=== PATIENT | female | born 1985 | race Caucasian/White ===

== ENCOUNTER 2023-01-06 08:21 | Emergency (ER) | payer BC ==
--- NOTE | 2023-01-06 08:26 | ED ---
General Adult HPI - General Stated complaint: Stroke Time Seen by Provider: 01/06/23 08:22 - History of Present Illness Initial comments: Dictation was produced using [employer] dictation software. please excuse any grammatical, word or spelling errors. Chief Complaint: 37-year-old female with unknown past medical history presents to the ER for strokelike symptoms History of Present Illness: To 37-year-old female she is a poor historian. History of present illness obtained mostly from EMS. EMS states that patient allegedly went to bed last night in her normal state of health. Allegedly she went to bed at 12 AM as night. This morning she woke to the bathroom and stumbled and fell. According to EMS patient has no history except for in vitro fertilization. She does not have any medical history otherwise. EMS reports the patient has right-sided deficits, neglect and facial droop. Unable to obtain ROS secondary to patient's mental status - Related Data Allergies Allergy/AdvReac Type Severity Reaction Status Date / Time Penicillins AdvReac Unknown Verified 01/06/23 08:41 Review of Systems ROS Statement: Those systems with pertinent positive or pertinent negative responses have been documented in the HPI. ROS Other: All systems not noted in ROS Statement are negative. General Exam - General Exam Comments Initial Comments: PHYSICAL EXAM: General Impression: Alert and oriented x2/4, not in acute distress HEENT: Normocephalic atraumatic, extra-ocular movements intact, pupils equal and reactive to light bilaterally, mucous membranes moist. Cardiovascular: Heart regular rate and rhythm Chest: Able to complete full sentences, no retractions, no tachypnea Abdomen: abdomen soft, non-tender, non-distended, no organomegaly Musculoskeletal: Pulses present and equal in all extremities, no peripheral edema Motor: no focal deficits noted Neurological: Right-sided facial droop, paralysis of the right upper extremity, sensory light touch patient reports is normal. She does have right-sided neglect, nondistended, positive aphasia, NIH score of 8 Skin: Intact with no visualized rashes Psych: Normal affect and mood Course Vital Signs 01/06/23 01/06/23 01/06/23 08:23 08:35 08:38 Temperature 97.8 F 97.6 F 97.6 F Pulse Rate 55 L 55 L 55 L Respiratory 16 16 16 Rate Blood Pressure 133/82 133/82 133/82 O2 Sat by Pulse 97 97 97 Oximetry 01/06/23 01/06/23 08:50 09:48 Temperature 97.6 F 97.8 F Pulse Rate 82 64 Respiratory 18 18 Rate Blood Pressure 131/71 141/86 O2 Sat by Pulse 97 97 Oximetry Medical Decision Making - Medical Decision Making 37-year-old female presents emergency department for strokelike symptoms. Last normal was at minimum 12 AM this morning when she went to bed. Patient will symptoms. Patient had a candidate for alteplase. Recently the benefits. Code stroke paged prior to patient's arrival. She was given an NIH score of 8 initially upon arrival. Was pt. sent in by a medical professional or institution (, PA, [employer]EN[employer]EEPER [employer]ORER, urgent care, hospital, or residential...) When possible be specific @ -No Did you speak to anyone other than the patient for history (EMS, parent, family, police, friend...)? What history was obtained from this source @ -More history was obtained from who is now at the bedside. States that over the last 2-3 days she's been complaining of a migraine headache. She was asked by if she went to go to the emergency department patient refused. she woke up and stumbled out of bed which was when EMS was called. Did you review nursing and triage notes (agree or disagree)? Why? @ -I reviewed and agree with nursing and triage notes Were old charts reviewed (outside hosp., previous admission, EMS record, old EKG, old radiological studies, urgent care reports/EKG's, residential records)? Report findings @ -No old charts were reviewed Differential Diagnosis (chest pain, altered mental status, abdominal pain women, abdominal pain men, vaginal bleeding, musculoskeletal, weakness, fever, dyspnea, syncope, headache, dizziness, GI bleed, back pain, seizure, CVA, palpatations, mental health)? @ - Differential CVA: Ischemic stroke, hemorrhagic stroke, brain tumor, atypical migraine, Wernicke's encephalopathy, seizure, multiple sclerosis, meningitis, encephalitis, hypoglycemia, Guillain-Johnson, electrolytes disturbance, myasthenia gravis.... This is not meant to be an all-inclusive list EKG interpreted by me (3pts min.). @ -My EKG interpretation: Ventricular rate 60, sinus rhythm,. 129, QRS 95, QTc 444. No [place] prolongation, no QTC prolongation, no ST or T-wave changes noted. EKG compared to default value showing no changes. Overall, this EKG is unremarkable X-rays interpreted by me (1pt min.). @ -None done CT interpreted by me (1pt min.). @ -Computed tomography scan of brain shows hyperdensity in the dural venous sinus system. He does appear to be hyperdensity in the upper right frontal region concerning for hemorrhage. CT angiography shows no large vessel occlusion U/S interpreted by me (1pt. min.). @ -None done What testing was considered but not performed or refused? (CT, X-rays, U/S, lab s)? Why? @ -MRI was considered however we do not have MRI available at our facility today What meds were considered but not given or refused? Why? @ -This was considered however patient not a candidate due to risk of doing the benefits. Heparin was also considered however there is suspicion of acute hemorrhage on CT brain Did you discuss the management of the patient with other professionals (professionals i.e. , PA, GREENSKEEPER LABORER, lab, RT, psych nurse, geriatric social work professor, manager shell, teacher, police officer crime prevention, case aide)? Give summary @ -Discussed with stroke neurologist, Dr. Waggoner who reviewed CT angiograp hy. It was relayed to him that computed tomography scan of the brain was concerning for cavernous sinus thrombosis. He requested the patient get stat MRI and that heparin be held until MRI results can define if there is a hemorrhage or not. Case discussed with discussed with Dr. Silva who also re viewed CT films. He agrees with stroke neurologist plan for transfer and no heparin until MRI. Was smoking cessation discussed for >3mins.? @ -No Was critical care preformed (if so, how long)? @ -33 minutes Were there social determinants of health that impacted care today? How? (Homelessness, low income, unemployed, alcoholism, drug addiction, transportation, low edu. Level, literacy, decrease access to med. care, detention, rehab)? @ -No Was there de-escalation of care discussed even if they declined (Discuss DNR or withdrawal of care, Hospice)? DNR status @ -No What co-morbidities impacted this encounter? (DM, HTN, Smoking, COPD, CAD, Cancer, CVA, ARF, Chemo, Hep., AIDS, mental health diagnosis, sleep apnea, morbid obesity)? @ -None Was patient admitted / discharged? Hospital course, mention meds given and route, prescriptions, significant lab abnormalities, going to OR and other p ertinent info. @ -37 y Old female presents to emergency department with strokelike symptoms. Patient outside the window for alteplase administration. Imaging suspicious for intracranial hemorrhage and venous sinus thrombosis. Initially was agreed that patient not a candidate for heparin however Dr. Silva spoke with Dr. Waggoner and they decided that patient should be started on heparin without bolus. Stroke specialist request stat MRI. We do not have MRI at her facility today. Initial plans were to transfer patient to [place] [facility]. However there was significant delay. We did get in contact with [facility] who did accept the patient for ER to ER transfer. Case was discussed with Dr. Rivera was accepting physician Undiagnosed new problem with uncertain prognosis? @ -No Drug Therapy requiring intensive monitoring for toxicity (Heparin, Nitro, Insulin, Cardizem)? @ -yes Were any procedures done? @ -No Diagnosis/symptom? Acute, or Chronic, or Acute on Chronic? Uncomplicated (without systemic symptoms) or Complicated (systemic symptoms)? @ -1. Acute strokelike symptoms Side effects of treatment? @ -No Exacerbation, Progression, or Severe Exacerbation? @ -No Poses a threat to life or bodily function? How? (Chest pain, [place], HI, pneumonia, PE, COPD, DKA, ARF, appy, cholecystitis, CVA, Diverticulitis, Homicidal, Suicidal, threat to staff... and all critical care pts) @ -yes - Lab Data Result diagrams: 01/06/23 08:45 01/06/23 08:45 Lab Results 01/06/23 01/06/23 01/06/23 Range/Units 08:45 08:45 08:45 WBC 13.1 H (3.8-10.6) k/uL RBC 4.54 (3.80-5.40) m/uL Hgb 10.9 L (11.4-16.0) gm/dL Hct 34.4 (34.0-46.0) % MCV 75.7 L (80.0-100.0) fL MCH 24.0 L (25.0-35.0) pg MCHC 31.7 (31.0-37.0) g/dL RDW 14.7 (11.5-15.5) % Plt Count 319 (150-450) k/uL MPV 7.6 Neutrophils % 88 % Lymphocytes % 7 % Monocytes % 3 % Eosinophils % 1 % Basophils % 0 % Neutrophils # 11.5 H (1.3-7.7) k/uL Lymphocytes # 1.0 (1.0-4.8) k/uL Monocytes # 0.3 (0-1.0) k/uL Eosinophils # 0.1 (0-0.7) k/uL Basophils # 0.0 (0-0.2) k/uL Microcytosis Slight Sodium 133 L (137-145) mmol/L Potassium 3.9 (3.5-5.1) mmol/L Chloride 104 (98-107) mmol/L Carbon Dioxide 23 (22-30) mmol/L Anion Gap 6 mmol/L BUN 10 (7-17) mg/dL Creatinine 0.59 (0.52-1.04) mg/dL Est GFR (CKD-EPI)AfAm >90 (>60 ml/min/1.73 sqM) Est GFR (CKD-EPI)NonAf >90 (>60 ml/min/1.73 sqM) Glucose 121 H (74-99) mg/dL Calcium 8.3 L (8.4-10.2) mg/dL Total Bilirubin 0.4 (0.2-1.3) mg/dL AST 13 L (14-36) U/L ALT 13 (4-34) U/L Alkaline Phosphatase 77 (38-126) U/L Troponin I <0.012 (0.000-0.034) ng/mL Total Protein 6.3 (6.3-8.2) g/dL Albumin 3.1 L (3.5-5.0) g/dL HCG, Quant <2.4 mIU/mL Urine Color Urine Appearance (Clear) Urine pH (5.0-8.0) Ur Specific [place] (1.001-1.035) Urine Protein (Negative) Urine Glucose (UA) (Negative) Urine Ketones (Negative) Urine Blood (Negative) Urine Nitrite (Negative) Urine Bilirubin (Negative) Urine Urobilinogen (<2.0) mg/dL Ur Leukocyte Esterase (Negative) Urine Opiates Screen (NotDetected) Ur Oxycodone Screen (NotDetected) Urine Methadone Screen (NotDetected) Ur Propoxyphene Screen (NotDetected) Ur Barbiturates Screen (NotDetected) U Tricyclic Antidepress (NotDetected) Ur Phencyclidine Scrn (NotDetected) Ur Amphetamines Screen (NotDetected) U Methamphetamines Scrn (NotDetected) U Benzodiazepines Scrn (NotDetected) Urine Cocaine Screen (NotDetected) U Marijuana (THC) Screen (NotDetected) 01/06/23 Range/Units 08:50 WBC (3.8-10.6) k/uL RBC (3.80-5.40) m/uL Hgb (11.4-16.0) gm/dL Hct (34.0-46.0) % MCV (80.0-100.0) fL MCH (25.0-35.0) pg MCHC (31.0-37.0) g/dL RDW (11.5-15.5) % Plt Count (150-450) k/uL MPV Neutrophils % % Lymphocytes % % Monocytes % % Eosinophils % % Basophils % % Neutrophils # (1.3-7.7) k/uL Lymphocytes # (1.0-4.8) k/uL Monocytes # (0-1.0) k/uL Eosinophils # (0-0.7) k/uL Basophils # (0-0.2) k/uL Microcytosis Sodium (137-145) mmol/L Potassium (3.5-5.1) mmol/L Chloride (98-107) mmol/L Carbon Dioxide (22-30) mmol/L Anion Gap mmol/L BUN (7-17) mg/dL Creatinine (0.52-1.04) mg/dL Est GFR (CKD-EPI)AfAm (>60 ml/min/1.73 sqM) Est GFR (CKD-EPI)NonAf (>60 ml/min/1.73 sqM) Glucose (74-99) mg/dL Calcium (8.4-10.2) mg/dL Total Bilirubin (0.2-1.3) mg/dL AST (14-36) U/L ALT (4-34) U/L Alkaline Phosphatase (38-126) U/L Troponin I (0.000-0.034) ng/mL Total Protein (6.3-8.2) g/dL Albumin (3.5-5.0) g/dL HCG, Quant mIU/mL Urine Color Yellow Urine Appearance Clear (Clear) Urine pH 5.5 (5.0-8.0) Ur Specific [place] 1.032 (1.001-1.035) Urine Protein Trace H (Negative) Urine Glucose (UA) Negative (Negative) Urine Ketones 1+ H (Negative) Urine Blood Negative (Negative) Urine Nitrite Negative (Negative) Urine Bilirubin Negative (Negative) Urine Urobilinogen <2.0 (<2.0) mg/dL Ur Leukocyte Esterase Negative (Negative) Urine Opiates Screen Not Detected (NotDetected) Ur Oxycodone Screen Not Detected (NotDetected) Urine Methadone Screen Not Detected (NotDetected) Ur Propoxyphene Screen Not Detected (NotDetected) Ur Barbiturates Screen Not Detected (NotDetected) U Tricyclic Antidepress Not Detected (NotDetected) Ur Phencyclidine Scrn Not Detected (NotDetected) Ur Amphetamines Screen Not Detected (NotDetected) U Methamphetamines Scrn Not Detected (NotDetected) U Benzodiazepines Scrn Not Detected (NotDetected) Urine Cocaine Screen Not Detected (NotDetected) U Marijuana (THC) Screen Not Detected (NotDetected) Disposition Clinical Impression: Cavernous sinus thrombosis Disposition: OTHER INSTITUTION NOT DEFINED Condition: Critical Referrals: None,Stated [Primary Care Provider] - 1-2 days Time of Disposition: 10:02 - Out of Hospital Transfer - Req. Specs Out of Hospital Transfer - Requested Specifics: Other Emergency Center ([facility])
[2023-01-06] MEDS ORDERED: VANCOMYCIN IV PER PHARMACY 1 EACH MISC MISCELLANE PRN (08:45)
[2023-01-06] MEDS ORDERED: CEFEPIME 2 GM in SODIUM CHLORIDE 0.9% 100 ML IVPB STA (08:45)
[2023-01-06] MEDS ORDERED: DEXAMETHASONE SOD PHOSPHATE 10 MG/ML 1 ML VIAL IV STA (08:46)
[2023-01-06 08:55] LABS: Basophils % (A) 0 %; Eosinophils # (A) 0.1 k/uL (0-0.7); Eosinophils % (A) 1 %; HCT 34.4 % (34.0-46.0); HGB 10.9 gm/dL (11.4-16.0); Lymphocytes % (A) 7 %; MCHC 31.7 g/dL (31.0-37.0); MCV 75.7 fL (80.0-100.0); Mean Platelet Volume 7.6; Microcytosis Slight; Monocytes # (A) 0.3 k/uL (0-1.0); Monocytes % (A) 3 %; Neutrophils # (A) 11.5 k/uL (1.3-7.7); Neutrophils % (A) 88 %; Platelet Count 319 k/uL (150-450); RBC 4.54 m/uL (3.80-5.40); RDW 14.7 % (11.5-15.5); WBC 13.1 k/uL (3.8-10.6)
[2023-01-06] MEDS ORDERED: VANCOMYCIN 1,500 MG in SODIUM CHLORIDE 0.9% 500 ML 500 ML IVPB ONE (09:00)
--- NOTE | 2023-01-06 09:05 | CT ---
EXAMINATION TYPE: CT brain wo con DATE OF EXAM: 01/06/2023 COMPARISON: Neuro deficit, acute, stroke suspected HISTORY: right sided weakness/ stroke CT DLP: 1103.[address] of the brain was performed. There is asymmetric hyperdensity within the right transverse sinus with focal areas of decreased atte nuation in 02/11/2032. There is also hyperdensity at the confluence of sinuses with small area of decr eased attenuation noted as well image 06/11/2032. There is hyperdensity within the straight sinus with small focal area of decreased attenuation noted on the sagittal data set image 26 sequence 2034. The re is also extensive hyperdensity throughout the superior sagittal sinus. Please note increased hemat ocrit can also cause increased density of the dural venous sinuses. Correlate clinically. On image 40 of 50 sequence 2032 there is subtle hyperdensity noted within the right frontal region an d small hemorrhages difficult to exclude. The ventricles are midline. Prominent cisterna magna. IMPRESSION: 1. There is hyperdensity of the dural venous sinus system as discussed above with a few areas of decr eased attenuation which could reflect dural venous sinus thrombosis. MRV is recommended for further e valuation. 2.On image 40 of 50 sequence 2032 there is subtle hyperdensity noted within the right frontal region and small hemorrhage is difficult to exclude. 3. Prominent cisterna magna.
[2023-01-06 09:12] LABS: ALT 13 U/L (4-34); AST 13 U/L (14-36); African American GFR (CKD) >90 (>60 ml/min/1.73 sqM); Albumin 3.1 g/dL (3.5-5.0); Alkaline Phosphatase 77 U/L (38-126); Anion Gap 6 mmol/L; Blood Urea Nitrogen 10 mg/dL (7-17); Calcium 8.3 mg/dL (8.4-10.2); Carbon Dioxide 23 mmol/L (22-30); Chloride 104 mmol/L (98-107); Glucose 121 mg/dL (74-99); Non-African American GFR(CKD) >90 (>60 ml/min/1.73 sqM); Potassium 3.9 mmol/L (3.5-5.1); Sodium 133 mmol/L (137-145); Total Bilirubin 0.4 mg/dL (0.2-1.3); Total Protein 6.3 g/dL (6.3-8.2)
--- NOTE | 2023-01-06 09:13 | CT ---
EXAMINATION TYPE: CT angio head neck DATE OF EXAM: 01/06/2023 COMPARISON: None HISTORY: weakness right side CT DLP: 866.9 mGycm CONTRAST: Performed with IV Contrast, patient injected with 65 mL of Isovue 370. Combination Contrast CTA cervical carotids and [place] CTA cervical carotids with 3-D recons truction Contrast CTA of the cervical carotids was performed 3-D reconstruction imaging obtained at a separate workstation. Patient motion limits evaluation. Right carotid system: Mild plaque is seen of the right common carotid artery. There is mild plaque a lso noted at the carotid bulb and proximal ICA. No significant diameter reduction. ECA is patent. Right vertebral artery appears unremarkable. Left carotid system: Mild plaque is seen of the left common carotid artery. There is mild plaque als o noted at the carotid bulb and proximal ICA. No significant diameter reduction. ECA is patent. Lef t vertebral artery appears unremarkable. There is cardiomegaly. IMPRESSION: 1. No significant diameter reduction to account for the patient's symptoms. CTA [place] with 3-D reconstruction Contrast CTA of the [place] was performed 3-D reconstruction imaging obtained at a separate workstation. Vertebrobasilar system as well as intracranial portions of the internal carotid arteries and their ma delfina tributaries are patent. I do not see evidence for sizable aneurysm or vascular malformation. Pl ease note MRI provides greater sensitivity and specificity. Visualized brain appears grossly unremar kable. No obvious dural venous filling defects seen however if symptoms persist I do recommend MRV. IMPRESSION: 1. No evidence for large vessel occlusion. There is narrowing of a left MCA branch vessel. NASCET criteria was used in interpretation of this exam?
[2023-01-06] MEDS ORDERED: HEPARIN SODIUM 1,000 UN/ML (10ML VL) IV PRN (09:21)
[2023-01-06] MEDS ORDERED: HEPARIN SODIUM 1,000 UN/ML (10ML VL) IV ONE (09:21)
[2023-01-06 09:25] VITALS: RESP 18
[2023-01-06 09:27] LABS: Prothrombin Time 10.3 sec (9.0-12.0)
[2023-01-06 09:28] LABS: HCG,Quantitative Serum <2.4 mIU/mL
[2023-01-06 09:45] LABS: Appearance,Urine Clear (Clear); Bilirubin,Urine Negative (Negative); Blood,Urine Negative (Negative); Color,Urine Yellow; Glucose,Urine (UA) Negative (Negative); Ketones,Urine 1+ (Negative); Leukocyte Esterase,Urine Negative (Negative); Nitrite,Urine Negative (Negative); PH, Urine 5.5 (5.0-8.0); Protein,Urine Trace (Negative); Specific Gravity,Urine 1.032 (1.001-1.035); Urobilinogen,Urine <2.0 mg/dL (<2.0)
[2023-01-06] MEDS ORDERED: HEPARIN SOD,PORK IN 0.45% NACL 25,000 UNIT in 0.45% NACL 1 250ML.BAG IV SCH (09:45)
[2023-01-06 09:47] LABS: Amphetamine Screen,Urine Not Detected (NotDetected); Barbiturate Screen,Urine Not Detected (NotDetected); Benzodiazepines Screen,Urine Not Detected (NotDetected); Cocaine Screen,Urine Not Detected (NotDetected); Methadone Screen, Urine Not Detected (NotDetected); Opiate Screen,Urine Not Detected (NotDetected); Oxycodone Screen, Urine Not Detected (NotDetected); Phencyclidine Screen,Urine Not Detected (NotDetected); Tricyclic Antidepressant,Urine Not Detected (NotDetected); Urn Cannabinoid Scrn Not Detected (NotDetected)
[2023-01-06 09:49] VITALS: TEMP 97.8
[2023-01-06] MEDS ORDERED: LORazepam 2 MG/ML INJ IV STA (09:51)
[2023-01-06 10:17] LABS: Partial Thromboplastin Time 20.9 sec (22.0-30.0)
[2023-01-06 10:21] VITALS: BP 147/82; PULSE 70
[2023-01-06] MEDS ORDERED: VANCOMYCIN 1,500 MG in SODIUM CHLORIDE 0.9% 500 ML 500 ML IVPB SCH (16:00)
== END 2023-01-06 10:30 | disposition other institution (70) ==
LOC: EC 08:21
DX: G08 Intracranial and intraspinal phlebitis and thrombophlebitis (principal); Z88.0 Allergy status to penicillin; W01.0XXA Fall on same level from slipping, tripping and stumbling without subsequent striking against object, initial encounter
CPT/HCPCS: 99291 ×2; 96365 ×2; 96368 ×2; 96375 ×3; 36415; 93005; 80053; 82550; 84484; 85025; 85610; 85730; 81003; 84702; 80306; 70496; 70450; 70498; J3370; J2060; J1100; J0692; Q9967; J1644